=== PATIENT | male | born 1980 | race Caucasian/White ===

== ENCOUNTER → 2016-12-05 | Outpatient (CLI) | payer OTHER ==
--- OUTSIDE RECORDS SUMMARY | 2016-12-05 13:56 | XMS REPORT | Continuity of Care Document ---
Author Author [facility] Organization [facility] Address Unknown Phone Unavailable Care Team Providers Care Certified Indoor Environmentalist Name Role Phone Unknown, Unknown PCP Unavailable Source Comments Some departments are not documenting in the electronic medical record. If you do not see the information that you expected, contact Release of Information in the Health Information Management department at [phone] for further assistance in locating additional records.[facility] Active Allergies and Adverse Reactions Allergen Noted Date Severity Reactions Comments Morphine 12/24/2013 FLUSHING (SKIN) Current Medications Prescription Sig. Disp. Refills Start End Date Status Date HYDROcodone-acetaminophen Take 1 Tab by mouth every Active (+) (LORTAB) 7.5-500 mg 4 hours as needed. tablet IBUPROFEN PO Take by mouth. Active Active Problems Problem Noted Date Shoulder pain 12/24/2013 Social History Tobacco Use Types Packs/Day Years Used Date Former Smoker Smokeless Tobacco: Current User Tobacco Cessation: Ready to Quit: No; Counseling Given: Yes Comments: Alcohol Use Drinks/Week oz/Week Comments Yes Last Filed Vital Signs Vital Sign Reading Time Taken Blood Pressure 131/76 12/24/2013 11:15 AM CDT Pulse 68 12/24/2013 11:15 AM CDT Temperature - - Respiratory Rate - - Height 1.829 m (6') 12/24/2013 11:15 AM CDT Weight 72.576 kg (160 lb) 12/24/2013 11:15 AM CDT Body Mass Index 21.7 12/24/2013 11:15 AM CDT Oxygen Saturation - - Plan of Care Health Maintenance Due Date Last Done Comments Physical (Comprehensive) 1987 Exam Pertussis Vaccine 1991 Tetanus Vaccine 1997 Influenza Vaccine 05/24/2015 Results from Last 3 Months Not on file
--- NOTE | 2016-12-05 15:16 | Diagnostic Imaging Report ---
PROCEDURE: MRI lumbar spine. TECHNIQUE: Multiplanar, multisequence MRI of the lumbar spine was performed without contrast. INDICATION: Neck pain. Sciatica. FINDINGS: There is a transitional lumbosacral junction with a prominent disc between S1 and S2 and at least partial separation between the sacral ala at S1 and S2 level. There is evidence of old pars defects bilaterally at the L5 level with grade 1 spondylolisthesis of L5 over S1. The alignment otherwise is satisfactory. The vertebral body heights are preserved. At L5/S1, there is disc desiccation and diffuse disc bulge, asymmetric to the left. This is not associated with significant central canal stenosis. At this level, there is moderate hypertrophy of the facet joints. There is bilateral mild lateral recess stenosis. The foramina demonstrate bilateral severe stenosis, worse on the left side compressing the exiting L5 nerve root. The other discs demonstrate no disc herniation at any level. There is mild facet hypertrophy bilaterally throughout the lumbar spine with no associated significant lateral recess stenosis or foraminal narrowing for the levels evaluated from T12/L1 to L4/5. Mild marrow changes and minimal amount of reactive soft tissue fluid is seen around the posterior elements of L5 and S1 related to facet arthropathy and pseudoarticulation from the chronic pars defects. The marrow signal demonstrates minimal reactive changes at the endplates of L5/S1 and upper endplate of L5. The cauda equina and conus medullaris appear grossly unremarkable. IMPRESSION: 1. There is a transitional lumbosacral junction with a prominent disc between S1 and S2. 2. Bilateral chronic L5 pars defects with grade 1 spondylolisthesis of L5 over S1. 3. There is bilateral severe foramina stenosis at L5/S1 resulting in compression of the exiting L5 spinal nerves, worse on the left side. Dictated by: Dictated on workstation # [id number]
== END ==
LOC: RAD 13:52
PROVIDERS: ATTEND Family Medicine
DX: M43.17 Spondylolisthesis, lumbosacral region (principal); M54.17 Radiculopathy, lumbosacral region; M48.07 Spinal stenosis, lumbosacral region
CPT/HCPCS: 72148

== ENCOUNTER 2022-03-24 06:20 | Emergency (ER) | payer SELFPAY ==
[~2022-03-24] VITALS: Ht 182.8 cm; Wt 72.4 kg
[2022-03-24] MEDS ORDERED: ONDANSETRON 4 MG (ZOFRAN) ORAL DISSOLVE TAB PO STA (06:56)
[2022-03-24] MEDS ORDERED: AUGMENTIN 875 MG TAB (AMOXICILLIN/CLAVULANATE) PO STA (06:56)
[2022-03-24] MEDS ORDERED: HYDROcodone/APAP 7.5 MG/325 MG (LORTAB, LORCET PLUS) TABLET PO ONE (07:00)
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
[2022-03-24] MEDS ORDERED: ONDA4TAB11 PO (07:05)
[2022-03-24] MEDS ORDERED: ACHD5005 PO (07:05)
[2022-03-24] MEDS ORDERED: AMOX1TAB12 PO (07:05)
[2022-03-24 07:18] VITALS: BP 142/100
== END 2022-03-24 07:26 | disposition home or self-care (01) ==
LOC: EDUNIT# 06:20 → ER 06:22
DX: H66.93 Otitis media, unspecified, bilateral (principal); H72.91 Unspecified perforation of tympanic membrane, right ear; F17.210 Nicotine dependence, cigarettes, uncomplicated
CPT/HCPCS: 99283

== ENCOUNTER 2022-03-28 09:42 | Emergency (ER) | payer SELFPAY ==
[~2022-03-28] VITALS: Ht 182 cm; Wt 72.0 kg
[~2022-03-28 09:42] MED LIST: ACHD5005 PO; AMOX1TAB12 PO; ONDA4TAB11 PO
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
[2022-03-28] MEDS ORDERED: NS IV 1000 ML 1,000 ML IV SCH (10:15)
[2022-03-28 10:38] LABS: BASOPHILS # (AUTO) 0.1 10^3/uL (0.0-0.1); BASOPHILS % (AUTO) 1 % (0-10); EOSINOPHILS # (AUTO) 0.2 10^3/uL (0.0-0.3); EOSINOPHILS % (AUTO) 2 % (0-10); HEMATOCRIT 44 % (40-54); HEMOGLOBIN 14.2 g/dL (13.3-17.7); LYMPHOCYTES % (AUTO) 29 % (12-44); MEAN CORPUSCULAR HEMOGLOBIN 33 pg (25-34); MEAN CORPUSCULAR HGB CONC 33 g/dL (32-36); MEAN CORPUSCULAR VOLUME 101 fL (80-99); MEAN PLATELET VOLUME 11.4 fL (9.0-12.2); MONOCYTES # (AUTO) 0.5 10^3/uL (0.0-1.0); MONOCYTES % (AUTO) 7 % (0-12); NEUTROPHILS # (AUTO) 4.2 10^3/uL (1.8-7.8); NEUTROPHILS % (AUTO) 60 % (42-75); PLATELET COUNT 256 10^3/uL (130-400); WHITE BLOOD COUNT 6.9 10^3/uL (4.3-11.0)
[2022-03-28 10:40] LABS: SMEAR SCAN COMMENT YES
[2022-03-28 10:44] LABS: ALBUMIN 4.3 GM/DL (3.2-4.5)
[2022-03-28 10:45] LABS: POTASSIUM 4.7 MMOL/L (3.6-5.0)
[2022-03-28 10:46] LABS: CALCIUM 9.5 MG/DL (8.5-10.1)
[2022-03-28 10:47] LABS: TOTAL PROTEIN 7.2 GM/DL (6.4-8.2)
[2022-03-28 10:49] LABS: BILIRUBIN,TOTAL 0.2 MG/DL (0.1-1.0)
[2022-03-28 10:51] LABS: CREATININE SERUM 0.95 MG/DL (0.60-1.30)
--- NOTE | 2022-03-28 11:07 | Diagnostic Imaging Report ---
EXAMINATION: CT head without contrast. TECHNIQUE: Multiple contiguous axial images were obtained through the brain without the use of intravenous contrast. All CT scans use one or more of the following dose optimizing techniques: automated exposure control, MA and/or KvP adjustment based on patient size and exam type or iterative reconstruction. HISTORY: right vision loss HERNDON earache COMPARISON: None available. FINDINGS: The ventricles and sulci are normal. No abnormal attenuation of brain parenchyma is present. No acute intracranial hemorrhage or abnormal extra-axial fluid collections are present. No hyperdense vessel. The calvarium is intact. The mastoid air cells are clear. Mucosal thickening of the paranasal sinuses. The orbits are normal. IMPRESSION: 1. No acute intracranial abnormality. Dictated by: Dictated on workstation # [id number]
[2022-03-28] MEDS ORDERED: CEFD300C3 PO (11:32)
[2022-03-28] MEDS ORDERED: KETOROLAC 30 MG/ML VIAL IVP ONE (11:45)
[2022-03-28 11:59] VITALS: BP 127/86
== END 2022-03-28 11:59 | disposition home or self-care (01) ==
LOC: EDUNIT# 09:42 → ER 09:43
DX: R51.9 Headache, unspecified (principal); H66.013 Acute suppurative otitis media with spontaneous rupture of ear drum, bilateral; H53.411 Scotoma involving central area, right eye
CPT/HCPCS: 36415; 70450; 80053; 85025; 86141